=== PATIENT | male | born 1995 | race American Indian/Alaskan Native ===

== ENCOUNTER 2016-07-24 01:47 | Emergency (ER) | payer OTHER ==
[2016-07-24 01:55] VITALS: BP 138/84
[2016-07-24] MEDS ORDERED: DECADRON IV ONE (11:36)
[2016-07-24] MEDS ORDERED: LIDOCAINE VISCOUS 2% PO ONE (11:36)
[2016-07-24] MEDS ORDERED: NORCO 5/325 PO ONE (11:37)
--- NOTE | 2016-07-24 11:58 | Emergency Department Report ---
<FLAVIOTISHA M - Last Filed: 07/24/16 15:23> ED ENT HPI - General Chief complaint: Headache Stated complaint: THROAT/HEAD PAIN Time Seen by Provider: 07/24/16 11:36 - Related Data Previous Rx's Medication Instructions Recorded Last Taken Type Butalb/Acetaminophen/Caffeine 1 cap PO Q8HR PRN #20 cap 07/24/16 Unknown Rx [Fioricet 50-300-40 mg CAP] Allergies Allergy/AdvReac Type Severity Reaction Status Date / Time codeine Allergy Hives Verified 07/24/16 01:51 peanut Allergy Swelling Verified 07/24/16 01:55 Penicillins Allergy Unknown Verified 07/24/16 01:51 ED Dental HPI - General Chief complaint: Headache Stated complaint: THROAT/HEAD PAIN - Related Data Previous Rx's Medication Instructions Recorded Last Taken Type Butalb/Acetaminophen/Caffeine 1 cap PO Q8HR PRN #20 cap 07/24/16 Unknown Rx [Fioricet 50-300-40 mg CAP] Allergies Allergy/AdvReac Type Severity Reaction Status Date / Time codeine Allergy Hives Verified 07/24/16 01:51 peanut Allergy Swelling Verified 07/24/16 01:55 Penicillins Allergy Unknown Verified 07/24/16 01:51 ED Review of Systems ROS: Stated complaint: THROAT/HEAD PAIN Other details as noted in HPI ED Past Medical Hx - Medications Home Medications: Home Medications Medication Instructions Recorded Confirmed Last Taken Type Butalb/Acetaminophen/Caffeine 1 cap PO Q8HR PRN #20 cap 07/24/16 Unknown Rx [Fioricet 50-300-40 mg CAP] ED Course Vital Signs 07/24/16 01:51 Temperature 98.3 F Pulse Rate 95 H Respiratory 18 Rate Blood Pressure 138/84 O2 Sat by Pulse 100 Oximetry ED Medical Decision Making - Lab Data Result diagrams: 07/24/16 12:26 07/24/16 14:15 - Medical Decision Making Seen and examined this patient. He has a history of persistent headache. He's been treated for sinusitis. His CT did not show any intracranial pathology. In addition there was no finding consistent of sinusitis. He has an elevated white blood cell count and persistent headache. He is neurologically intact. He met criteria for lumbar puncture. He also states he's never had an HIV test. 4 tubes of clear cerebral spinal fluid were sent to the lab. Final disposition will be per his lumbar puncture findings. Cryptococcal antigen was sent as well as routine studies. Critical care attestation.: If time is entered above; I have spent that time in minutes in the direct care of this critically ill patient, excluding procedure time. ED Disposition Clinical Impression: Headache Qualifiers: Headache type: cluster Headache chronicity pattern: episodic headache Intractability: not intractable Qualified Code(s): G44.019 - Episodic cluster headache, not intractable Upper respiratory infection Qualifiers: URI type: unspecified viral URI Qualified Code(s): J06.9 - Acute upper respiratory infection, unspecified Disposition: DISCHARGED TO HOME OR SELFCARE Condition: Stable Instructions: Acute Headache (ED), Upper Respiratory Infection (ED) Additional Instructions: Take medication as directed. Follow up with the selective referrals given at discharge. Return back to the ED for worsening symptoms or concerns Prescriptions: Butalb/Acetaminophen/Caffeine [Fioricet 50-300-40 mg CAP] 1 cap PO Q8HR PRN #20 cap PRN Reason: Pain Referrals: PRIMARY MD ALFREDA [Primary Care Provider] - 3-5 Days LEODAN FERNANDEZ MD [Staff Physician] - 3-5 Days FREDERICK SHERWOOD MD [Staff Physician] - 3-5 Days WAGNER REES MD [Staff Physician] - 3-5 Days Forms: Work/School Release Form(ED) <OBDULIO CALLES - Last Filed: 07/24/16 16:52> ED ENT HPI - General Source: patient Mode of arrival: Ambulatory Limitations: No Limitations - History of Present Illness Initial comments: Patient reports productive cough, pain with swallowing, chills, low-grade fever , neck stiffness, headache and eye drainage that initially started 2 weeks ago intermittently. Patient was treated by telo-medicine physician 3 days ago and given prescriptions for BC headache powder, Ibuprofen, Azithromycin and Prednisone, however he reports symptoms are not any better MD complaint: sore throat, difficulty swallowing, other (headache) Onset/Timin -: week(s) Location: throat Severity: severe Severity scale (0 -10): 9 Quality: aching Consistency: intermittent Improves with: none Worsens with: swallowing, position, movement Context-Epistaxis: other (none) Context- Dental: other (none) Context- Ear: other (none) Associated Symptoms: fever, cough, pain with swallowing, sore throat. denies: tinnitus, hearing loss, discharge from ear, rhinorrhea ED Dental HPI - General Source: patient Mode of arrival: Ambulatory Limitations: No Limitations ED Review of Systems Constitutional: fever (low-grade last night 99.7). denies: chills, diaphoresis , malaise, weakness Eyes: eye discharge (bilateral). denies: eye pain, vision change ENT: throat pain, congestion (nasal). denies: ear pain, dental pain, hearing loss, epistaxis Respiratory: cough (productive). denies: orthopnea, shortness of breath, SOB with exertion, SOB at rest, stridor, wheezing Cardiovascular: denies: chest pain, palpitations, dyspnea on exertion, orthopnea , edema, syncope, paroxysmal nocturnal dyspnea Gastrointestinal: denies: abdominal pain, nausea, vomiting, diarrhea, constipation Musculoskeletal: denies: back pain, joint swelling, arthralgia, myalgia Skin: denies: rash, lesions, change in color, change in hair/nails, pruritus Neurological: headache (parietal). denies: weakness, numbness, paresthesias, confusion, abnormal gait, vertigo Psychiatric: denies: anxiety, depression Hematological/Lymphatic: denies: easy bleeding, easy bruising, swollen glands ED Past Medical Hx - Past Medical History Previous Medical History?: Yes Hx Asthma: Yes - Surgical History Past Surgical History?: No - Social History Smoking Status: Never Smoker Substance Use Type: None ED Physical Exam - General Limitations: No Limitations General appearance: alert, in no apparent distress - Head Head exam: Present: atraumatic, normocephalic, normal inspection - Eye Eye exam: Present: normal appearance, PERRL, EOMI. Absent: nystagmus Pupils: Present: normal accommodation. Absent: irregular, unequal - ENT ENT exam: Present: normal orophraynx, mucous membranes moist, TM's normal bilaterally, normal external ear exam, other (swelling to nasal turbinates). Absent: mucous membranes dry - Neck Neck exam: Present: tenderness (to palpation right and left sternomastoid), full ROM (limited by pain). Absent: meningismus, lymphadenopathy, thyromegaly - Expanded Neck Exam Expanded Neck exam: Present: tenderness (with palpation to right and left sternomastoid) . Absent: midline deformity, anterior neck swelling, thyroid mass, carotid bruit, tracheal deviation - Respiratory Respiratory exam: Present: normal lung sounds bilaterally. Absent: respiratory distress, wheezes, rales, rhonchi, stridor, chest wall tenderness, accessory muscle use, decreased breath sounds, prolonged expiratory - Cardiovascular Cardiovascular Exam: Present: regular rate, normal rhythm, normal heart sounds. Absent: systolic murmur, diastolic murmur, rubs, gallop, clicks, JVD, S3, S4 - GI/Abdominal GI/Abdominal exam: Present: soft, normal bowel sounds. Absent: distended, tenderness, guarding, rebound, rigid - Extremities Exam Extremities exam: Present: normal inspection, full ROM, normal capillary refill. Absent: tenderness, pedal edema, joint swelling, calf tenderness - Back Exam Back exam: Present: normal inspection. Absent: CVA tenderness (R), CVA tenderness (L) - Neurological Exam Neurological exam: Present: alert, oriented X3, CN II-XII intact, normal gait, reflexes normal, other (no focal neuro deficits). Absent: motor sensory deficit - Psychiatric Psychiatric exam: Present: normal affect, normal mood. Absent: depressed, agitated - Skin Skin exam: Present: warm, dry, intact, normal color. Absent: rash ED Course - Reevaluation(s) Reevaluation #1: 07/24/16 12:45 Laboratory studies, Decadron mixed with viscous lidocaine and pain medication ordered Reevaluation #2: 07/24/16 13:34 Patient reports pain scale is still 10/10 despite medication given in the ED Reevaluation #3: 07/24/16 14:02 radiology and laboratory studies ordered Reevaluation #4: 07/24/16 14:57 Lumbar puncture tray ordered by Dr. Turpin ED Medical Decision Making - Lab Data Result diagrams: 07/24/16 12:26 07/24/16 14:15 Microbiology 07/24/16 11:00 Nasopharyngeal Swab Influenza Types A,B Antigen (STEFFEN) - Final 07/24/16 11:00 Throat Group A Streptococcus Rapid Screen - Final Negative Lab Results 07/24/16 Range/Units 12:26 WBC 16.3 H (4.5-11.0) K/mm3 RBC 5.53 H (3.65-5.03) M/mm3 Hgb 15.0 (11.8-15.2) gm/dl Hct 45.2 (35.5-45.6) % MCV 82 L (84-94) fl MCH 27 L (28-32) pg MCHC 33 (32-34) % RDW 14.3 (13.2-15.2) % Plt Count 264 (140-440) K/mm3 Lymph % (Auto) 12.2 L (13.4-35.0) % [place] % (Auto) 10.2 H (0.0-7.3) % Eos % (Auto) 0.2 (0.0-4.3) % Baso % (Auto) 0.6 (0.0-1.8) % Lymph # 2.0 (1.2-5.4) K/mm3 [place] # 1.7 H (0.0-0.8) K/mm3 Eos # 0.0 (0.0-0.4) K/mm3 Baso # 0.1 (0.0-0.1) K/mm3 Seg Neutrophils % 76.8 H (40.0-70.0) % Seg Neutrophils # 12.5 H (1.8-7.7) K/mm3 Lab Results 07/24/16 07/24/16 07/24/16 Range/Units 12:26 14:15 Unknown WBC 16.3 H (4.5-11.0) K/mm3 RBC 5.53 H (3.65-5.03) M/mm3 Hgb 15.0 (11.8-15.2) gm/dl Hct 45.2 (35.5-45.6) % MCV 82 L (84-94) fl MCH 27 L (28-32) pg MCHC 33 (32-34) % RDW 14.3 (13.2-15.2) % Plt Count 264 (140-440) K/mm3 Lymph % (Auto) 12.2 L (13.4-35.0) % [place] % (Auto) 10.2 H (0.0-7.3) % Eos % (Auto) 0.2 (0.0-4.3) % Baso % (Auto) 0.6 (0.0-1.8) % Lymph # 2.0 (1.2-5.4) K/mm3 [place] # 1.7 H (0.0-0.8) K/mm3 Eos # 0.0 (0.0-0.4) K/mm3 Baso # 0.1 (0.0-0.1) K/mm3 Seg Neutrophils % 76.8 H (40.0-70.0) % Seg Neutrophils # 12.5 H (1.8-7.7) K/mm3 Sodium 138 (137-145) mmol/L Potassium 4.4 (3.6-5.0) mmol/L Chloride 97.8 L (98-107) mmol/L Carbon Dioxide 25 (22-30) mmol/L Anion Gap 20 mmol/L BUN 12 (9-20) mg/dL Creatinine 0.9 (0.8-1.5) mg/dL Estimated GFR > 60 ml/min BUN/Creatinine Ratio 13.33 % Glucose 76 (75-100) mg/dL Calcium 9.4 (8.4-10.2) mg/dL Total Bilirubin 0.5 (0.1-1.2) mg/dL AST 20 (5-40) units/L ALT 13 (7-56) units/L Alkaline Phosphatase 73 (35-129) units/L Total Protein 7.9 (6.3-8.2) g/dL Albumin 3.8 L (3.9-5) g/dL Albumin/Globulin Ratio 0.9 % CSF Appearance Clear CSF Color Colorless CSF WBC 0 (1-10) /mm3 CSF RBC 0 (0-0) /mm3 CSF Comment - Radiology Data Radiology results: image reviewed PROCEDURE: CT HEAD/BRAIN WO CON TECHNIQUE: Computerized tomography of the head was performed without contrast material. HISTORY: headache/pain COMPARISON: No prior studies are available for comparison. FINDINGS: Skull and scalp: Normal. Paranasal sinuses: Normal. Ventricles and subarachnoid spaces: Normal. Cerebrum: No evidence of hemorrhage, acute infarction or mass . Cerebellum and brainstem: No evidence of hemorrhage, acute infarction or mass. Vasculature: Normal. Comments: None. IMPRESSION: Normal Examination - Medical Decision Making During the course of ED, pain medication, Decadron mix with lidocaine viscous, laboratory and radiology studies were ordered. Patient's physical examination revealed no fever, nuchal rigidity, altered mental status, phobia, papilledema, seizures or petechia, palpable pruritic rash. Patient reports some relief from medications given in the ED. The imaging study revealed normal examination. Dr. Turpin performed a LP, which reveal clear and colorless fluid. Patient tolerated procedure well. Patient was place HOB flat for two hours pending results from laboratory studies. Results from CSF were unremarkable, therefore patient was discharged home with a prescription for Fiorcet, instructed to continue taking the Azithromycin and Prednisone, but to discontinue taking the BC headache powder and Ibuprofen, he verbalized understanding. He was referred to several specialist for follow-up and encouraged to return back to the ED for worsening symptoms or concerns - Differential Diagnosis Headache, Meningitis, Upper Respiratory Infection ED Disposition Is pt being admited?: No Does the pt Need Aspirin: No Time of Disposition: 16:22
[2016-07-24 12:47] LABS: Basophils % (Auto) 0.6 % (0.0-1.8); Eosinophils % (Auto) 0.2 % (0.0-4.3); Hematocrit 45.2 % (35.5-45.6); Mean Corpuscular HGB Conc 33 % (32-34); Mean Corpuscular Hemoglobin 27 pg (28-32); Mean Corpuscular Volume 82 fl (84-94); Platelet Count 264 K/mm3 (140-440); Red Blood Count 5.53 M/mm3 (3.65-5.03); Red Cell Distribution Width 14.3 % (13.2-15.2); White Blood Count 16.3 K/mm3 (4.5-11.0)
[2016-07-24 14:47] LABS: Alanine Aminotransferase 13 units/L (7-56); Albumin 3.8 g/dL (3.9-5); Albumin/Globulin Ratio 0.9 %; Alkaline Phosphatase 73 units/L (35-129); BUN/Creatinine Ratio 13.33; Bilirubin,Total 0.5 mg/dL (0.1-1.2); Blood Urea Nitrogen 12 mg/dL (9-20); Calcium 9.4 mg/dL (8.4-10.2); Carbon Dioxide 25 mmol/L (22-30); Chloride 97.8 mmol/L (98-107); Glucose 76 mg/dL (75-100); Potassium 4.4 mmol/L (3.6-5.0); Sodium 138 mmol/L (137-145); Total Protein 7.9 g/dL (6.3-8.2)
--- NOTE | 2016-07-24 14:48 | Cat Scan Report ---
FINAL REPORT PROCEDURE: CT HEAD/BRAIN WO CON TECHNIQUE: Computerized tomography of the head was performed without contrast material. HISTORY: headache/pain COMPARISON: No prior studies are available for comparison. FINDINGS: Skull and scalp: Normal. Paranasal sinuses: Normal. Ventricles and subarachnoid spaces: Normal. Cerebrum: No evidence of hemorrhage, acute infarction or mass . Cerebellum and brainstem: No evidence of hemorrhage, acute infarction or mass. Vasculature: Normal. Comments: None. IMPRESSION: Normal Examination
[2016-07-24 14:51] LABS: Anion Gap 20 mmol/L
[2016-07-24 15:51] LABS: Appearance,CSF Clear
[2016-07-24 15:52] LABS: White Blood Cell,CSF 0 /mm3 (1-10)
[2016-07-24 16:01] LABS: Glucose,CSF 62 mg/dL
[2016-07-24 17:33] LABS: CSF Diff Status Complete
== END 2016-07-24 16:40 | disposition home or self-care (01) ==
LOC: ED 01:47
DX: G44.019 Episodic cluster headache, not intractable (principal); J06.9 Acute upper respiratory infection, unspecified; J45.909 Unspecified asthma, uncomplicated
CPT/HCPCS: 36415; 62270; 70450; 80053; 82947; 84160; 85025; 86403; 86592; 87116; 87400; 87430; 89051; 96374; 99284; J1100